=== PATIENT | male | born 1975 | race Caucasian/White ===

== ENCOUNTER 2016-04-05 19:12 | Observation (INO) ==
[2016-04-05 19:37] LABS: Basophils # 0.1 K/mcL (0.0-0.2); Basophils % 0.5 %; Eosinophils # 0.1 K/mcL (0.0-0.6); Eosinophils % 0.9 %; Hematocrit 47.6 % (37.5-50.1); Hemoglobin 16.1 g/dL (12.9-16.9); Immature Granulocytes % 0.3 % (0-4); Immature Platelets 6.9 % (1.1-6.1); Lymphocytes # 2.3 K/mcL (0.6-4.6); Lymphocytes % 21.8 %; Mean Corpuscular HGB Conc 33.8 g/dL (31.6-35.5); Mean Corpuscular Hemoglobin 31.2 pg (28.0-33.3); Mean Corpuscular Volume 92.2 fL (83.0-100.0); Mean Platelet Volume 10.5 fL (9.4-12.4); Monocytes # 0.6 K/mcL (0.0-1.3); Monocytes % 5.7 %; Neutrophils # 7.4 K/mcL (1.6-8.9); Platelet Count 228 K/mcL (140-400); Red Blood Count 5.16 M/mcL (4.19-5.50); Red Cell Distribution Width 14.4 % (11.5-14.5); Segmented Neutrophils % 70.8 %
[2016-04-05 19:42] LABS: INR 1.1; Prothrombin Time 11.5 Seconds (9.4-12.1)
[2016-04-05 19:45] LABS: Activated Partial Thrombo Time 31.1 Seconds (26.0-36.0)
[2016-04-05 19:51] LABS: Alanine Aminotransferase 158 Units/L (0-55); Albumin/Globulin Ratio 0.9 (1.1-2.2); Alkaline Phosphatase 90 Units/L (38-126); Aspartate Amino Transferase 62 Units/L (5-34); BUN/Creatinine Ratio 17 (6-26); Bilirubin,Total 0.4 mg/dL (0.2-1.2); Blood Urea Nitrogen 18 mg/dL (8-26); Calcium 9.6 mg/dL (8.6-10.8); Carbon Dioxide 20 mEq/L (19-29); Chloride 106 mEq/L (98-109); Globulin 4.7 g/dL (2.4-3.5); Glucose 136 mg/dL (70-99); Osmolality,Calculated 294 (280-300); Potassium 4.1 mEq/L (3.5-4.5); Sodium 140 mEq/L (136-145); Total Protein 8.7 g/dL (6.0-8.3); eGFR For African Americans > 60 (> 60); eGFR For Non-African Americans > 60 (> 60)
[2016-04-05 19:56] LABS: Acetaminophen < 1.0 mcg/mL (10-30); Ethanol < 10 mg/dL (0-10); Salicylate < 5.0 mg/dL (15-30)
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
[2016-04-05 20:43] LABS: Amphetamine Screen,Urine Negative ng/mL (Cutoff=1000); Barbiturate Screen,Urine Negative ng/mL (Cutoff=200); Benzodiazepines Screen,Urine Negative ng/mL (Cutoff=200); Cannabinoid Screen,Urine Positive ng/mL (Cutoff = 50); Cocaine Screen,Urine Negative ng/mL (Cutoff= 300); Opiate Screen,Urine Negative ng/mL (Cutoff=300); Phencyclidine Screen,Urine Negative ng/mL (Cutoff=25)
[2016-04-05 20:48] LABS: Bilirubin,Urine Small (Negative); Blood,Urine Negative (Negative); Clarity,Urine Cloudy (Clear); Color,Urine Dark Yellow (Yellow); Glucose,Urine (UA) Normal (Normal); Ketones,Urine Negative (Negative); Leukocyte Esterase,Urine Negative (Negative); Nitrite,Urine Negative (Negative); Protein,Urine 30 mg/dL (Neg-Trace); Specific Gravity,Urine 1.026 (1.010-1.025); Urobilinogen,Urine Normal (Normal)
[2016-04-05 20:50] LABS: Bacteria,Urine None Seen per hpf (None-Few); Hyaline Casts,Urine Few per lpf (None-Few); RBC,Urine 0-3 per hpf (0-3); Squamous Epithelial Cell,Urine Many per lpf (None-Few); WBC,Urine 0-3 per hpf (0-3)
[2016-04-06] MEDS ORDERED: Ipratropium/Albuterol Neb 3 ML IH PRN (00:27)
[2016-04-06] MEDS ORDERED: Benzonatate 100 MG CAPSULE PO PRN (00:27)
[2016-04-06] MEDS ORDERED: *HR* LORazepam 2 MG/ML VIAL IVP PRN (00:30)
[2016-04-06] MEDS ORDERED: Haloperidol Lactate 5 MG/ML VIAL IVP PRN (00:30)
[2016-04-06] MEDS ORDERED: MOM Conc 10 ML UD.LIQ PO PRN (00:30)
[2016-04-06] MEDS ORDERED: *HR* Promethazine 25 MG/ML VIAL IVP PRN (00:30)
[2016-04-06] MEDS ORDERED: Pantoprazole 40 MG VIAL IVP STA (00:30)
[2016-04-06] MEDS ORDERED: Naloxone 0.4 MG/ML INJ IVP PRN (00:30)
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
[2016-04-06] MEDS: NALOXONE IVC SCH ×3 (01:28→12:16)
[2016-04-06] MEDS: SODIUM CHLORIDE 0.9% IVC SCH ×3 (01:28→12:16)
[2016-04-06] MEDS: 0.9 % Sodium Chloride 1,000 ML IVC SCH ×2 (01:29→16:16)
[2016-04-06 03:32] LABS: Magnesium 2.6 mg/dL (1.6-2.6); Phosphorous 3.6 mg/dL (2.3-4.7)
[2016-04-06 03:37] LABS: VBG HCO3 29.8 mEq/L (21-27); VBG PH 7.41 pH Units (7.32-7.42)
[2016-04-06 03:42] LABS: Ionized Calcium 1.15 mmol/L (1.15-1.35)
[2016-04-06 03:54] LABS: Hepatitis B Surface Antigen Nonreactive (Nonreactive); Prolactin 9.69 ng/mL (3.46-19.40); Thyroid Stimulating Hormone 0.889 mcIU/mL (0.350-4.840)
[2016-04-06] MEDS: Famotidine 20 MG/2 ML VIAL IVP SCH ×2 (05:30→17:48)
[2016-04-06] MEDS: *HR* Enoxaparin 40 MG/0.4 ML SYRINGE SQ SCH (06:51)
[2016-04-06] MEDS: Vitamin B Complex/Vit C/Vit E 1 EACH TABLET PO SCH (09:14)
[2016-04-06] MEDS: Thiamine (B-1) 100 MG TABLET PO SCH (09:14)
[2016-04-06] MEDS: Folic Acid 1 MG TABLET PO SCH (09:14)
[2016-04-06] MEDS: Nicotine 21 MG PATCH.TD24 TD SCH (09:14)
--- NOTE | 2016-04-06 11:21 | Event Note ---
Date of Encounter: 04/06/16 Time of Encounter: 09:35 Patient doing better today. AMS has resolved. Denies any suicidal ideation at this time. We will consult psychiatric for further evaluation.
--- NOTE | 2016-04-06 12:04 | ECHO - Doppler Report ---
Echocardiogram Name: Artemio Gaffney Date of Study: 04/06/2016 Date: 1975 Ht: 67.0 in Medical Record#: [id number] Age: 41 Wt: 138.0 lb Gender: Male BSA: 1.73 Order #: [id number] Location: [facility] Room #: [id number] Reading Physician: Neil Edmond DO, SIMI, [place] Human Resources Communications Manager: Ayana Acharya RDCS Ordering Physician: Boni Arango MD Primary Physician: None Indications: Altered Mental Status Impressions: Technically sub-optimal due to poor echocardiographic windows. LVEF 55-60%. Normal LV chamber size and wall thickness. Not all LV segments were well visualized, but overall LV function appears normal. Mild left ventricular diastolic dysfunction. Normal right ventricular structure and function. No evidence of pulmonary hypertension. RVSP not well obtained due to inadequate TR jet. No obvious significant valvular dysfunction. Findings: Study Quality * Technically sub-optimal due to poor echocardiographic windows. ECG Findings * Normal sinus rhythm. Left Ventricle * LVEF 55-60%. * Normal LV chamber size and wall thickness. * Not all LV segments were well visualized, but overall LV function appears normal. * Mild left ventricular diastolic dysfunction. Right Ventricle * Normal right ventricular structure and function. Left Atrium * Normal left atrial size. Right Atrium * Normal right atrial size. Interatrial Septum * Interatrial septum not well evaluated. Aortic Valve * Trileaflet aortic valve with normal function. * No aortic regurgitation. * No aortic stenosis. Mitral Valve * Mitral valve not well visualized. * No mitral regurgitation. * No mitral stenosis. Tricuspid Valve * Tricuspid valve not well visualized. * Trace tricuspid regurgitation. * No evidence of pulmonary hypertension identified. * RVSP not well obtained due to inadequate TR jet. Pulmonic Valve * Pulmonic valve not well visualized. Aorta * Normally sized aortic root. Pericardium * The pericardium appears normal. IVC * Normal IVC dimensions and inspiratory collapse. Pulmonary Artery * Normal visualized portions of the main pulmonary artery. History History of Smoking Years Packs 2 Family History of CAD Measurements: BP: 120/ 83 2D Normal Values RVIDd: 1.63 cm <2.7 cm IVSd: .61 cm 0.6 - 1.0 cm LVIDd: 4.72 cm 3.7 - 5.6 cm LVPWd: .79 cm 0.6 - 1.1 cm LVIDs: 2.60 cm 1.5 - 3.6 cm AO: 2.70 cm < 4.0 cm LA: 3.40 cm 2.0 - 4.0cm %FS: 44.90 cm >25 % LA volume: 24 Mitral Valve Peak E:.60 m/sec Peak A:.90 m/sec E/A Ratio:0.7 Peak E' Lat Kirit:14.2 cm/s Peak E' Med Kirit:7.34 cm/s E/E' Lat Ratio:4.2 E/E' Med Ratio:8.2 Tricuspid Valve TV Regurg Peak Grad: 11.00mmHg TV Regurg Peak Kirit: 1.67m/sec Updated by Neil Edmond DO, SIMI, [place], [place] on 04/06/2016 11:56:06 AM electronically signed on 04/06/2016 11:58:23 AM with status of Final
--- NOTE | 2016-04-06 12:13 | Consult Note ---
Date of Encounter: 04/06/16 Time of Encounter: 12:05 Assessment & Recommendation (1) Bipolar disorder Current visit: Yes Status: Chronic Assessment & Recommendation: At this point the patient's bipolar disorder seems to be in full remission. He has been compliant with his medications and receiving treatment from [facility]. This recent bout of confusion is very unlikely a manifestation of bipolar disorder. Patient is denying any suicidal or homicidal ideations does not appear to be psychotic or manic. Patient does have a history of seizure disorder he reported that he had a seizure 3-4 days ago. He believes that his recent bout of confusion that led to his hospitalization is some manifestation of his seizure disorder. At this point no further psychiatric intervention or treatment or change of medications is needed. However I would recommend patient been seen by a neurologist for his underlying seizure disorder and metabolic encephalopathy Patient already is set up with the [facility] and will continue to follow with his outpatient psychiatrist. Thank you very much for the consult please feel free to call me for any further questions Qualifiers: Active/Remission status: remission status unspecified Qualified Code(s): F31.9 - Bipolar disorder, unspecified History of Present Illness Patient: new to practice Requesting Physician: Cristian Motley MD Reason for consult: Altered mental status. rule out suicide attempt History of present illness: Mr. Gaffney is a 41 year old male Who was referred for hospitalization after he was found by his neighbor wandering in his neighborhood in a confused and bizarre fashion. Patient was hospitalized on the [facility] floor. A psych consult was given since patient has an extensive history of bipolar disorder and to rule out a suicide attempt. Upon interviewing today patient appeared clear and coherent. He is oriented to time place and person. Patient reported that he does have a history of bipolar disorder and has been fairly stable on his medications. In addition patient reported that he has a history of seizure disorder for which he is taking Neurontin and Depakote. Patient reported that his last seizure was 4 days ago. He believed that he has a seizure-like episode last evening after which she got confused and was brought to the hospital. Patient denies any significant drug use except for marijuana even he reported that his last use was 4 days ago. Patient reported that his mood has been fairly stable he denies any depressive or manic symptoms he has not psychotic or suicidal at this point. He reported that he has been pretty compliant with his medications and did not overuse or overdose on any of his pills. At this point patient is clear coherent and is not manifesting any psychiatric symptoms. CC: Cristian Motley MD Past Med Surg Social Fam HX - Past Medical History Medical history: arthritis, COPD, GERD, osteoporosis, other - Past Psychiatric History Psychiatric history: Reports: bipolar, previous psychiatric hospitalization Past psychiatric history details: Patient has extensive history of bipolar disorder. He is currently a patient at the [facility]. He reported that his bipolar disorder has been fairly stable for more than 5 years. His last hospitalization was approximately 7 years ago at the [facility]. He has been compliant with his medications. Family psychiatric history: No Family History of Suicide: None - Past Surgical History Surgical History: appendectomy, vasectomy, other - Social History Smoking Status: Current every day smoker Smokeless Tobacco Status: No Alcohol use: none, occasionally Drug use: opiates, marijuana, IVDU, prescription drug abuse Additional substance use detail: Patient denies any current use of drugs or alcohol. He reported that his last use of marijuana was 4 days ago. He denies using heroin or any other illicit drugs in the recent past. Occupational status: disabled Current living situation: Home - Independent Activity Level: Independent ambulation Recent Out of Country Travel Within the Last 8 Weeks: No Exposure or Possible Exposure to Illness During Travel: No Additional social history: Patient is single he has 3 children from a previous relationship. He resides by himself is on disability from [facility]. He denies any legal issues Medications & Allergies Cephalexin [Keflex] 500 mg PO BID #28 capsule 03/03/16 [Rx] Sulfamethoxazole/Trimeth SS [Bactrim] 1 each PO BID #14 tablet 03/03/16 [Rx] Allergies No Known Allergies Allergy (Verified 03/03/16 01:22) Review of Systems Psychiatric: Reports: anxiety Mental Status Exam Patient orientation: Yes Person, Yes Time, Yes Place Level of alertness: Alert Patient appearance: Appropriate, Well Groomed Behavior: calm, cooperative Psychomotor activity: Normal Eye contact: Maintains Eye Contact Mood description: Euthymic/stable Affect description: congruent with mood, full range Speech pattern: Normal rate, Normal rhythm, Normal tone Speech volume: Normal Thought process: Linear, Goal Oriented Thought content: No Suicidal ideation, No Homicidal ideation, No Overt delusions Perceptual disturbances: No Auditory hallucinations, No Visual hallucinations Attention span: Capable of Focused Attention Memory description: Grossly Intact Patient reliability: Reliable Historian Intelligence estimate: Average Judgment: Limited Insight: Partial Results - Vital Signs Vital signs: Temp Pulse Resp BP Pulse Ox 97.9 F 96 17 105/70 97 04/06/16 10:38 04/06/16 10:38 04/06/16 10:38 04/06/16 10:38 04/06/16 10:38 - Labs Labs: Laboratory Last Values WBC 10.5 K/mcL (4.3-11.1) 04/05/16 19:29 RBC 5.16 M/mcL (4.19-5.50) 04/05/16 19:29 Hgb 16.1 g/dL (12.9-16.9) 04/05/16 19:29 Hct 47.6 % (37.5-50.1) 04/05/16 19:29 MCV 92.2 fL (83.0-100.0) 04/05/16 19:29 MCH 31.2 pg (28.0-33.3) 04/05/16 19:29 MCHC 33.8 g/dL (31.6-35.5) 04/05/16 19:29 RDW 14.4 % (11.5-14.5) 04/05/16 19:29 Plt Count 228 K/mcL (140-400) 04/05/16 19:29 MPV 10.5 fL (9.4-12.4) 04/05/16 19:29 Immature Gran % 0.3 % (0-4) 04/05/16 19:29 Seg Neutrophils % 70.8 % 04/05/16 19:29 Lymphocytes % 21.8 % 04/05/16 19:29 Monocytes % 5.7 % 04/05/16 19:29 Eosinophils % 0.9 % 04/05/16 19:29 Basophils % 0.5 % 04/05/16 19:29 Neutrophils # 7.4 K/mcL (1.6-8.9) 04/05/16 19:29 Lymphocytes # 2.3 K/mcL (0.6-4.6) 04/05/16 19:29 Monocytes # 0.6 K/mcL (0.0-1.3) 04/05/16 19:29 Eosinophils # 0.1 K/mcL (0.0-0.6) 04/05/16 19:29 Basophils # 0.1 K/mcL (0.0-0.2) 04/05/16 19:29 Immature Plt Fraction 6.9 % (1.1-6.1) H 04/05/16 19:29 ESR 43 mm/hr (0-10) H 04/06/16 03:04 PT 11.5 Seconds (9.4-12.1) 04/05/16: INR 1.1 04/05/16 19:29 APTT 31.1 Seconds (26.0-36.0) 04/05/16 19:29 VBG pH 7.41 pH Units (7.32-7.42) 04/06/16 03:04 VBG pCO2 47 mmHg (41-51) 04/06/16 03:04 VBG pO2 49 mmHg (25-40) H 04/06/16 03:04 VBG HCO3 29.8 mEq/L (21-27) H 04/06/16 03:04 Sodium 140 mEq/L (136-145) 04/05/16 19:29 Potassium 4.1 mEq/L (3.5-4.5) 04/05/16 19:29 Chloride 106 mEq/L (98-109) 04/05/16 19:29 Carbon Dioxide 20 mEq/L (19-29) 04/05/16 19:29 BUN 18 mg/dL (8-26) 04/05/16 19:29 Creatinine 1.07 mg/dL (0.72-1.25) 04/05/16 19:29 Est GFR ( Amer) > 60 (> 60) 04/05/16 19:29 Est GFR (Non-Af Amer) > 60 (> 60) 04/05/16 19:29 BUN/Creatinine Ratio 17 (6-26) 04/05/16 19:29 Glucose 136 mg/dL (70-99) H 04/05/16 19:29 Calculated Osmolality 294 (280-300) 04/05/16 19:29 Lactic Acid 1.6 mmol/L (0.5-2.2) 04/05/16 19:29 Calcium 9.6 mg/dL (8.6-10.8) 04/05/16 19:29 Ionized Calcium 1.15 mmol/L (1.15-1.35) 04/06/16 03:04 Phosphorus 3.6 mg/dL (2.3-4.7) 04/06/16 03:04 Magnesium 2.6 mg/dL (1.6-2.6) 04/06/16 03:04 Total Bilirubin 0.4 mg/dL (0.2-1.2) 04/05/16 19:29 AST 62 Units/L (5-34) H 04/05/16 19:29 ALT 158 Units/L (0-55) H 04/05/16 19:29 Alkaline Phosphatase 90 Units/L (38-126) 04/05/16 19:29 Ammonia 31 mcmol/L (18-72) 04/06/16 03:04 Creatine Kinase 74 Units/L (30-200) 04/06/16 03:04 Troponin I 0.00 ng/mL (0-0.03) 04/06/16 08:26 C-Reactive Protein 2 mg/L (Less than 5) 04/06/16 03:04 Serum Total Protein 8.7 g/dL (6.0-8.3) H 04/05/16 19:29 Albumin 4.0 g/dL (3.5-5.0) 04/05/16 19:29 Globulin 4.7 g/dL (2.4-3.5) H 04/05/16 19:29 Albumin/Globulin Ratio 0.9 (1.1-2.2) L 04/05/16 19:29 Triglycerides 161 mg/dL (< 150) H 04/06/16 03:04 Cholesterol 281 mg/dL (< 200) H 04/06/16 03:04 LDL Cholesterol, Calc 209 mg/dL (0-99) H 04/06/16 03:04 VLDL Cholesterol, Calc 32 mg/dL (< 31) H 04/06/16 03:04 HDL Cholesterol 40 mg/dL (40-59) 04/06/16 03:04 Cholesterol/HDL Ratio 7.0 (0-4.9) H 04/06/16 03:04 TSH 0.889 mcIU/mL (0.350-4.840) 04/06/16 03:04 Prolactin 9.69 ng/mL (3.46-19.40) 04/06/16 03:04 Urine Color Dark Yellow (Yellow) 04/05/16 20:30 Urine Clarity Cloudy (Clear) A 04/05/16 20:30 Urine pH 6.0 pH Units (5.0-8.0) 04/05/16 20:30 Ur Specific [place] 1.026 (1.010-1.025) H 04/05/16 20:30 Urine Protein 30 mg/dL (Neg-Trace) H 04/05/16 20:30 Urine Glucose (UA) Normal mg/dL (Normal) 04/05/16 20:30 Urine Ketones Negative mg/dL (Negative) 04/05/16 20:30 Urine Blood Negative (Negative) 04/05/16 20:30 Urine Nitrite Negative (Negative) 04/05/16 20:30 Urine Bilirubin Small (Negative) H 04/05/16 20:30 Urine Urobilinogen Normal mg/dL (Normal) 04/05/16 20:30 Ur Leukocyte Esterase Negative (Negative) 04/05/16 20:30 Urine Microscopic RBC 0-3 per hpf (0-3) 04/05/16 20:30 Urine Microscopic WBC 0-3 per hpf (0-3) 04/05/16 20:30 Ur Squamous Epith Cells Many per lpf (None-Few) H 04/05/16 20:30 Urine Bacteria None Seen per hpf (None-Few) 04/05/16 20:30 Hyaline Casts Few per lpf (None-Few) 04/05/16 20:30 Ur Culture Indicated? NO (NO) 04/05/16 20:30 Salicylates < 5.0 mg/dL (15-30) L 04/05/16 19:29 Urine Opiates Screen Negative ng/mL (Flvdct=265) 04/05/16 20:30 Acetaminophen < 1.0 mcg/mL (10-30) L 04/05/16 19:29 Ur Barbiturates Screen Negative ng/mL (Ewwmgn=130) 04/05/16 20:30 Ur Phencyclidine Scrn Negative ng/mL (Cutoff=25) 04/05/16 20:30 Ur Amphetamines Screen Negative ng/mL (Iffubv=0397) 04/05/16 20:30 U Benzodiazepines Scrn Negative ng/mL (Tspekc=207) 04/05/16 20:30 Urine Cocaine Screen Negative ng/mL (Cutoff= 300) 04/05/16 20:30 U Marijuana (THC) Screen Positive ng/mL (Cutoff = 50) H 04/05/16 20:30 Ethyl Alcohol < 10 mg/dL (0-10) 04/05/16 19:29 Hep Bs Antigen Nonreactive (Nonreactive) 04/06/16 03:04 Consult Discharge Plan - Plan Referrals: NO,PCP [Primary Care Provider] -
--- NOTE | 2016-04-06 13:02 | Carotid Imaging Report ---
Carotid Duplex Patient Name:Artemio Gaffney Order Number:[id number] Procedure Date:04/06/2016 Date:1975Age:41 yrs Gender:Male Rt.BP:120 / 83 mmHgHeart Rate: Location:[facility] Room #: 22 Financial Administrative Assistant:Ayana Acharya, [facility] Referring MD:Boni Arango MD sinter feeder:None Reading MD:Avinash Talbert MD Primary Indications:Altered Mental Status Risk Factors Yes/No Smoking Current Yes Impressions: Findings: Bilateral carotid system is essentially normal. Recommendations: Test completed on 04/06/2016 at 11:13:00 am. Findings Carotid Duplex: [place] scale imaging combined with Doppler flow analysis suggests normal findings bilaterally. Right: The right proximal common carotid artery has a PSV of 102 cm/s and a EDV of 21 cm/s. The right mid common carotid artery has a PSV of 106 cm/s and a EDV of 20 cm/s. The right distal common carotid artery has a PSV of 93 cm/s and a EDV of 25 cm/s. The right bifurcation has a PSV of 69 cm/s and a EDV of 19 cm/s. The right proximal internal carotid artery has a PSV of 78 cm/s and a EDV of 21 cm/s. The right mid internal carotid artery has a PSV of 67 cm/s and a EDV of 21 cm/s. The right distal internal carotid artery has a PSV of 65 cm/s and a EDV of 19 cm/s. The right eca has a PSV of 89 cm/s and a EDV of 21 cm/s. The right vertebral artery has a PSV of 65 cm/s and a EDV of 15 cm/s. There is antegrade spectral Doppler flow patterns. Left: The left proximal common carotid artery has a PSV of 124 cm/s and a EDV of 28 cm/s. The left mid common carotid artery has a PSV of 86 cm/s and a EDV of 20 cm/s. The left distal common carotid artery has a PSV of 69 cm/s and a EDV of 18 cm/s. The left bifurcation has a PSV of 54 cm/s and a EDV of 17 cm/s. The left proximal internal carotid artery has a PSV of 73 cm/s and a EDV of 25 cm/s. The left mid internal carotid artery has a PSV of 84 cm/s and a EDV of 29 cm/s. The left distal internal carotid artery has a PSV of 80 cm/s and a EDV of 29 cm/s. The left eca has a PSV of 102 cm/s and a EDV of 22 cm/s. The left vertebral artery has a PSV of 39 cm/s and a EDV of 9 cm/s. There is antegrade spectral Doppler flow patterns. Prior Study: No prior study available for comparison. Carotid Results Right PSV EDV Assessment Proximal CCA 102 21 Mid CCA 106 20 Distal CCA 93 25 Bifurcation 69 19 Proximal ICA 78 21 Mid ICA 67 21 Distal ICA 65 19 ECA 89 21 Vertebral Artery 65 15 Antegrade Flow Left PSV EDV Assessment Proximal CCA 124 28 Mid CCA 86 20 Distal CCA 69 18 Bifurcation 54 17 Proximal ICA 73 25 Mid ICA 84 29 Distal ICA 80 29 ECA 102 22 Vertebral Artery 39 9 Antegrade Flow Ratio's Right ICA/CCA Ratio: 0.74 ICA/CCA Values: 78/106 Left ICA/CCA Ratio: 0.98 ICA/CCA Values: 84/86 Updated by Avinash Talbert MD on 04/06/2016 12:57:52 PM electronically signed on 04/06/2016 12:58:43 PM with status of Final
[2016-04-06] MEDS: Ketorolac 30 MG/ML VIAL IVP PRN ×2 (16:03→21:02)
[2016-04-06] MEDS ORDERED: Valproic Acid INJ 1,000 MG in 0.9 % Sodium Chloride 100 ML IVPB ONE (16:54)
[2016-04-07] MEDS: Divalproex (12 HR) 500 MG TABLET PO SCH ×2 (00:14→09:44)
[2016-04-07] MEDS ORDERED: Water for inj. (sterile) 10 ML IV ONE (00:20)
[2016-04-07] MEDS: Acetaminophen 325 MG TABLET PO PRN ×2 (00:21→12:19)
[2016-04-07] MEDS: 0.9 % Sodium Chloride 1,000 ML IVC SCH ×2 (02:24→09:58)
[2016-04-07] MEDS: Ketorolac 30 MG/ML VIAL IVP PRN ×3 (03:09→16:05)
[2016-04-07 03:47] LABS: Basophils # 0.1 K/mcL (0.0-0.2); Basophils % 0.6 %; Eosinophils # 0.2 K/mcL (0.0-0.6); Hematocrit 38.8 % (37.5-50.1); Immature Granulocytes % 0.1 % (0-4); Lymphocytes # 3.2 K/mcL (0.6-4.6); Lymphocytes % 41.2 %; Mean Corpuscular HGB Conc 33.8 g/dL (31.6-35.5); Mean Corpuscular Hemoglobin 31.3 pg (28.0-33.3); Mean Corpuscular Volume 92.8 fL (83.0-100.0); Monocytes # 0.6 K/mcL (0.0-1.3); Monocytes % 7.2 %; Neutrophils # 3.7 K/mcL (1.6-8.9); Platelet Count 168 K/mcL (140-400); Red Blood Count 4.18 M/mcL (4.19-5.50); Red Cell Distribution Width 14.3 % (11.5-14.5); Segmented Neutrophils % 47.9 %
[2016-04-07 04:06] LABS: Hemoglobin 13.1 g/dL (12.9-16.9)
[2016-04-07 04:09] LABS: Alanine Aminotransferase 103 Units/L (0-55); Albumin/Globulin Ratio 0.8 (1.1-2.2); Alkaline Phosphatase 66 Units/L (38-126); Aspartate Amino Transferase 46 Units/L (5-34); BUN/Creatinine Ratio 29 (6-26); Bilirubin,Total 0.4 mg/dL (0.2-1.2); Blood Urea Nitrogen 25 mg/dL (8-26); Calcium 8.5 mg/dL (8.6-10.8); Carbon Dioxide 20 mEq/L (19-29); Chloride 110 mEq/L (98-109); Globulin 3.5 g/dL (2.4-3.5); Glucose 90 mg/dL (70-99); Osmolality,Calculated 292 (280-300); Sodium 139 mEq/L (136-145); eGFR For African Americans > 60 (> 60); eGFR For Non-African Americans > 60 (> 60)
[2016-04-07 04:10] LABS: Albumin 2.9 g/dL (3.5-5.0); Total Protein 6.4 g/dL (6.0-8.3)
[2016-04-07] MEDS: *HR* Enoxaparin 40 MG/0.4 ML SYRINGE SQ SCH (06:01)
[2016-04-07] MEDS: Famotidine 20 MG/2 ML VIAL IVP SCH ×2 (06:01→17:11)
--- NOTE | 2016-04-07 09:27 | Neurology - Consult Note ---
Date of Encounter: 04/07/16 Time of Encounter: 09:27 Assessment and Plan (1) Altered mental status Current Visit: Yes Status: Chronic - Seems to have resolved now and has had no issues while in the hospital - Patient reports history of seizure disorder but is a very vague historian as to describing his episodes. - Reports confusion for "days" after an episode - Reports compliance with medication but Depakote level is low - Will give 1 time dose of 1000mg - Continue with MRI - Continue with EEG - No acute concerns - If MRI and EEG are normal, [facility]. - Further recommendations pending attending evaluation Qualifiers: Altered mental status type: delirium Qualified Code(s): R41.0 - Disorientation, unspecified History of Present Illness Chief complaint: confusion, seizure HPI: Mr. Gaffney is a 41 year old male who presented through the [facility] over the weekend with the chief complaint of confusion and altered mental status. Per reports, the patient was found wandering around and confused over the weekend and was brought to the ED. Head CT was negative and initial workup was negative. Patient's mental status returned to baseline and he was evaluated by Psychiatry. Patient has a history of bipolar disorder and psychiatry believes that this is in remission. Patient also reports a 12 year history of seizure disorder. He was been on Dilantin and Gabapentin for this for the last 10 years. He reports over the past several weeks - months that he has had an increase in his seizures. He normally gets 3-4 seizures per month but states they have been happening several times a week lately. He is unable to describe his seizures and states he doesn't remember what happens but sometimes he has tonic/clonic movements and sometimes he just gets very confused and acts strange. He states he was admitted previously for this same issue and reports it was related to a seizure. He states his last seizure was 3-4 days ago and that he thinks he may have had one the night of his admission. Also reports that he will get very confused, sometimes for "days" afterwards. He denies any symptoms currently other than chronic pain. Reports compliance with his medications. Denies drug use other than marijuana. Past Med Surg Social Fam HX - Past Medical History Medical history: arthritis, COPD, GERD, osteoporosis, other Psychiatric history: bipolar, previous psychiatric hospitalization - Past Surgical History Surgical History: appendectomy, vasectomy, other - Social History Smoking Status: Current every day smoker Packs per day: 2+ppd Smokeless Tobacco Status: No Alcohol use: none, occasionally Drug use: opiates, marijuana, IVDU, prescription drug abuse Medications and Allergies No Known Home Drugs 04/06/16 [History] Allergies No Known Allergies Allergy (Verified 03/03/16 01:22) All Systems: A 10-system review of systems was performed and is negative for pertinent findings except as documented above in the HPI. - Constitutional Constitutional ROS IM: weakness (generalized, feels tired), no fever(s), no headache(s) - Nose, Mouth, Throat Nose, mouth and throat: neck pain (chronic ), no abnormal hearing, no headache(s ), no hoarseness, no vertigo - Cardiovascular Cardiovascular ROS IM: no dyspnea, no syncope - Respiratory Respiratory IM: cough (chronic, h/o COPD ), no dyspnea - Gastrointestinal Gastrointestinal: no abdominal pain, no diarrhea - Musculoskeletal Musculoskeletal ROS IM: back pain (chronic ), neck pain (chronic ), numbness ( legs, chronic ), no abnormal gait - Integumentary Integumentary IM: no rash - Neurological Neurological ROS: confusion, other ("seizures" ), no abnormal speech, no behavioral changes, no dizziness, no focal weakness, no headache(s), no loss of vision, no syncope - Psychiatric Psychiatric general PM: confusion, no auditory hallucinations, no homicidal ideation, no suicidal ideation, no visual hallucinations - Endocrine Endocrine IM: fatigue - Hematologic/Lymphatic Hematologic/Lymphatic pediatric: no easy bleeding, no easy bruising Physical Examination - Vital Signs Vital Signs: Initial Vital Signs Temp Pulse Resp BP Pulse Ox 98.6 F 92 12 134/87 95 04/05/16 19:19 04/05/16 19:19 04/05/16 19:19 04/05/16 19:19 04/05/16 19:19 - Constitutional General appearance: comfortable - Neurologic Detailed motor examination: grossly full strength in all extremities, full strength in all major muscle groups, other (patient reluctant with strength testing in BUE secondary to pain in his neck, chronic, states he hasn't had his gabapentin yet. Denies any weakness or numbness that is worse than usual) Detailed sensory examination: intact (other than lateral lower legs, states this is chronic and feels dull ) Reflex and gait examination: intact Reflexes: Brachioradialis: 2+, Patella: 2+, Achilles: 2+ Mental Status Examination: awake, alert, oriented to person, oriented to place, oriented to time, follows commands appropriately, answers questions appropriately, no agnosia, no aphasia, no aproxia, lucid Cranial nerve examination: PERRL, EOMI, sensory to face intact, mastication intact, no facial asymmetry is present, no dysarthria, hearing is intact symmetrically, soft palate elevates bilaterally upon phonation, flexes SCM and trapezius muscles symmetrically with full power, tongue protrudes midline, no atrophy or facial fasiculations present Cerebellar examination: performs finger to nose and heel to etienne symmetrically without ataxia (patient did not want to participate in this part of the exam secondary to pain and not receiving his pain medication yet this morning. Denies any weakness that is different from baseline) Results - Laboratory Findings CBC and BMP: 04/07/16 03:18 04/07/16 03:18 Abnormal lab findings: Abnormal lab results RBC 4.18 M/mcL (4.19-5.50) L 04/07/16 03:18 Immature Plt Fraction 6.9 % (1.1-6.1) H 04/05/16 19:29 ESR 43 mm/hr (0-10) H 04/06/16 03:04 VBG pO2 49 mmHg (25-40) H 04/06/16 03:04 VBG HCO3 29.8 mEq/L (21-27) H 04/06/16 03:04 Chloride 110 mEq/L (98-109) H 04/07/16 03:18 BUN/Creatinine Ratio 29 (6-26) H 04/07/16 03:18 Calcium 8.5 mg/dL (8.6-10.8) L 04/07/16 03:18 AST 46 Units/L (5-34) H 04/07/16 03:18 ALT 103 Units/L (0-55) H 04/07/16 03:18 Albumin 2.9 g/dL (3.5-5.0) L D 04/07/16 03:18 Albumin/Globulin Ratio 0.8 (1.1-2.2) L 04/07/16 03:18 Triglycerides 161 mg/dL (< 150) H 04/06/16 03:04 Cholesterol 281 mg/dL (< 200) H 04/06/16 03:04 LDL Cholesterol, Calc 209 mg/dL (0-99) H 04/06/16 03:04 VLDL Cholesterol, Calc 32 mg/dL (< 31) H 04/06/16 03:04 Cholesterol/HDL Ratio 7.0 (0-4.9) H 04/06/16 03:04 Urine Clarity Cloudy (Clear) A 04/05/16 20:30 Ur Specific [place] 1.026 (1.010-1.025) H 04/05/16 20:30 Urine Protein 30 mg/dL (Neg-Trace) H 04/05/16 20:30 Urine Bilirubin Small (Negative) H 04/05/16 20:30 Ur Squamous Epith Cells Many per lpf (None-Few) H 04/05/16 20:30 Salicylates < 5.0 mg/dL (15-30) L 04/05/16 19:29 Acetaminophen < 1.0 mcg/mL (10-30) L 04/05/16 19:29 Valproic Acid 14.83 mcg/mL (50-100) L 04/06/16 03:04 U Marijuana (THC) Screen Positive ng/mL (Cutoff = 50) H 04/05/16 20:30 Consult Discharge Plan - Plan Referrals: NO,PCP [Primary Care Provider] -
[2016-04-07] MEDS: Nicotine 21 MG PATCH.TD24 TD SCH (09:44)
[2016-04-07] MEDS: Vitamin B Complex/Vit C/Vit E 1 EACH TABLET PO SCH (09:44)
[2016-04-07] MEDS: Folic Acid 1 MG TABLET PO SCH (09:45)
[2016-04-07] MEDS: Thiamine (B-1) 100 MG TABLET PO SCH (09:45)
[2016-04-07] MEDS: Mag Hydrox/Al Hydrox/Simeth 30 ML UDC PO PRN ×2 (10:02→16:09)
[2016-04-07] MEDS ORDERED: Valproic Acid 250 MG CAPSULE PO ONE (10:13)
[2016-04-07 11:31] VITALS: BP 126/80
[2016-04-07 11:54] LABS: Hepatitis A Antibody IgM Nonreactive (Nonreactive); Hepatitis B Core IgM Nonreactive (Nonreactive)
[2016-04-07 11:58] LABS: Hepatitis C Virus Antibody Reactive (Nonreactive)
--- NOTE | 2016-04-07 14:11 | EEG/EMG/Oth Biometrics Report ---
EEG Procedure Report Date of procedure: 04/07/16 EEG Procedure: Routine EEG Procedure Note: This EEG was acquired with standard international 1020 system with EKG recording. The background EEG activity was characterized by the presence of mixture of alpha, theta and delta activity with best frequency of 10.5 Hz. The background activity was reactive to eye openings. Sleep stages were not identified during this tracing. Drowsiness was characterized by drop off of posterior dominant Alpha rhythm. There are no electrographic seizures identified during this tracing. There are no epileptiform discharges and focal slowing noted during this recording. Photic stimulation produced and hyperventilation produced no abnormalities. EKG tracing showed no significant cardiac dysrhythmia. Impression: This is essentially a normal awake and asleep EEG. Clinical Correlation: Normal EEGs, however, do not exclude epilepsy. Clinical correlation is advised.
--- NOTE | 2016-04-07 14:46 | Discharge Summary ---
Date of Encounter: 04/07/16 Time of Encounter: 14:39 - Discharge Diagnosis (1) Toxic metabolic encephalopathy Priority: Primary Status: Acute (2) Seizure disorder Priority: Secondary Status: Acute (3) Transaminitis Priority: Secondary Status: Acute (4) Altered mental status Priority: Secondary Status: Chronic Qualifiers: Altered mental status type: delirium Qualified Code(s): R41.0 - Disorientation, unspecified (5) Bipolar disorder Priority: Secondary Status: Chronic Qualifiers: Active/Remission status: remission status unspecified Qualified Code(s): F31.9 - Bipolar disorder, unspecified (6) Nicotine dependence with nicotine-induced disorder Priority: Secondary Status: Chronic Qualifiers: Nicotine product type: cigarettes Qualified Code(s): F17.219 - Nicotine dependence, cigarettes, with unspecified nicotine-induced disorders (7) Hyperlipidemia Priority: Secondary Status: Chronic Qualifiers: Hyperlipidemia type: mixed hyperlipidemia Qualified Code(s): E78.2 - Mixed hyperlipidemia - Discharge Medications Prescriptions: Pravastatin Sodium [Pravachol] 20 mg PO HS #30 tablet Home Medications: Benztropine Mesylate 1 mg PO BID 04/07/16 [History] Benztropine [Cogentin] 1 mg PO HS 04/07/16 [History] Budesonide/Formoterol 160/4.5 [Symbicort 160/4.5] 1 puff IH BID 04/07/16 [ History] Divalproex (24 HR) [Depakote ER (24 HR)] 1,000 mg PO HS 04/07/16 [History] Gabapentin [Neurontin] 900 mg PO BID 04/07/16 [History] Ibuprofen [Motrin] 600 mg PO Q8HR PRN 04/07/16 [History] Omeprazole [PriLOSEC] 20 mg PO DAILY 04/07/16 [History] Pravastatin Sodium [Pravachol] 20 mg PO HS #30 tablet 04/07/16 [Rx] Quetiapine Fumarate [Seroquel] 50 mg PO QAM 04/07/16 [History] Quetiapine Fumarate [Seroquel] 300 mg PO HS 04/07/16 [History] Sildenafil Citrate [Viagra] 100 mg PO AD PRN 04/07/16 [History] Allergies/Adverse Reactions: Allergies No Known Allergies Allergy (Verified 03/03/16 01:22) Procedures/tests Complete & Pending: Procedures Performed prior 72 hours Category Date Time Status MR head/brain wo con [MR] Routine MRI 04/06/16 07:00 Ordered EV carotid duplex imaging BI Routine Y 04/06/16 08:00 Completed EV echocardiogram Routine Y 04/06/16 08:00 Completed Date of admission: 04/05/16 21:31 Primary care physician: PCP NO Consults: 04/06/16 02:10 Consult to Occupational Therapy [CONS] Routine Comment: Evaluate, develop and implement POC Consult to Physical Therapy [CONS] Routine Comment: Evaluate, develop and implement POC 04/06/16 07:46 Consult to Psychiatry [CONS] Routine Consulting Provider: Evaristo Rothman Reason for Consult: Bipolar disorder/ delirium/ polysubstance abuse Call Completed: No 04/07/16 11:57 Consult to Interpret Exam [CONS] Routine Consulting Provider: Edelmira Beach Consult to Interpret Exam: Interpret EEG Discharging clinician: Cristian Motley Anticipated date of discharge: 04/07/16 - Patient Status Disposition: Home, Self-Care Condition: Good Functional capacity at discharge: independent ambulation Overall status at discharge: patient is progressing back to baseline - Discharge Instructions Instructions: Mood Disorders (DC) Follow [facility]: [facility] [Non-Partnered Physician] - 04/22/16 12:30 pm Additional Instructions: Follow-up with neurology at [facility] in 1-2 weeks for seizure disorder. - Diet and Activity Activity: resume usual activities as tolerated, other (Avoid driving until he sees neurologist) Diet: advance to your usual diet, regular diet Hospital course: Mr. Gaffney is a 41 year old male with history of bipolar disorder, seizure disorder Was observed in the hospital after presenting with altered mental status and encephalopathy. He was found by his neighbor acting abnormal and so was brought in to the ER. He is on multiple psychotropic agents and BRCA2 is unclear if he had taken his medications appropriately or not. His urine drug screen was positive for marijuana. His valproic acid level was low. Patient reports having episodes of seizures as outpatient. This could be due to his low valproic acid levels. Neurology was consulted. EEG was done which was negative for any epileptic activity. They recommended continuing valproic acid at current dosage and follow up with neurology as outpatient. Psychiatry was also consulted and did recommend continue patient's management at this time. Currently, the patient is awake and alert. Doing well overall. He will be discharged home today and follow-up with his primary care provider for further management. - Time Spent with Patient Total time spent providing and/or coordinating discharge services: Greater than 30 minutes (35 min) - Constitutional Vitals: Temp Pulse Resp BP Pulse Ox 97.3 F L 88 16 126/80 97 04/07/16 11:30 04/07/16 11:30 04/07/16 11:30 04/07/16 11:30 04/07/16 11:30 General appearance: Present: A&O X 0. Absent: cooperative, answers questions appropriately - Respiratory Respiratory exam: Present: CTAB. Absent: accessory muscle use, rales, rhonchi, wheezes - GI/Abdominal GI/Abdominal exam: Present: normal bowel sounds, soft, no peritoneal signs. Absent: distended, tenderness - Extremities Exam Extremities exam: Present: warm, radial pulses palpable and symetrical. Absent : calf tenderness, cyanotic, pedal edema - Neurological Exam Neurological exam: Present: alert, oriented X3, no focal deficits. Absent: facial droop, speech deficit - VTE Documentation of Mechanical Device: Graduated compression elastic hosiery - Attending Attestation This document has been at least partially created by [employer] voice recognition technology by Dr. Motley. Errors in grammar, wording or other phrases may exist. If errors are found after the documentation is signed, they will be addressed individually in the addendum section of this document when appropriate.
--- NOTE | 2016-04-07 17:27 | Electrocardiograph Report ---
[address] [place] [address] Test Date: 2016-04-05 Pat Name: Artemio Gaffney Department: 104 Room: 3B22 Gender: M [employer]reach [employer] Social Worker: : 1975 Requested By: Seth Reyna Order Number: [id number] Reading MD: Lizbeth Mckeon Measurements Intervals [place] Rate: 87 P: 54 NH: 116 QRS: 28 QRSD: 85 T: 38 QT: 333 QTc: 378 Interpretive Statements SINUS RHYTHM WITH SHORT NH INTERVAL MODERATE VOLTAGE CRITERIA FOR LVH, CONSIDER NORMAL VARIANT Electronically Signed On 04-07-2016 17:24:59 EST by Lizbeth Mckeon
[2016-04-07] MEDS ORDERED: Gabapentin 300 MG CAPSULE PO SCH (21:00)
[2016-04-08 20:58] LABS: Amphetamines NEGATIVE ng/mL (Cutoff 30); Barbiturates NEGATIVE ng/mL (Cutoff 75); Benzodiazepines NEGATIVE ng/mL (Cutoff 75); Cocaine NEGATIVE ng/mL (Cutoff 30); Methadone NEGATIVE ng/mL (Cutoff 40); Methamphetamines NEGATIVE ng/mL (Cutoff 30); Opiates NEGATIVE ng/mL (Cutoff 30); Phencyclidine NEGATIVE ng/mL (Cutoff 15)
[2016-04-11 08:20] LABS: Alpha 2 Globulin (PEP) 0.9 g/dL (0.5-1.1); Beta Globulin (PEP) 1.2 g/dL (0.5-1.1)
== END 2016-04-07 19:30 | disposition home or self-care (01) ==
LOC: EMEROO 19:12 → 3BNU 19:12
PROVIDERS: ADMIT Pediatrics; ATTEND Internal Medicine